=== PATIENT | female | born 1990 | race Caucasian/White ===

== ENCOUNTER 2017-08-26 17:56 | Emergency (ER) | payer OTHER ==
[~2017-08-26] VITALS: Ht 165.1 cm; Wt 59.0 kg
[~2017-08-26 17:56] MED LIST: AMOXICILLIN500 MG PO; Motrin,Rufen800 MG PO; TYLENOL W/CODEI1 TA2 PO
[2017-08-26] MEDS ORDERED: CLINDAMYCIN HC300 MG PO (18:44)
[2017-08-26] MEDS ORDERED: ANAPROX DS550 MG PO (18:44)
[2017-08-26] MEDS ORDERED: NORCO 5-325 TA1 EACH PO (18:44)
== END 2017-08-26 18:53 | disposition home or self-care (01) ==
LOC: ED 17:56
DX: K04.7 Periapical abscess without sinus (principal); F17.200 Nicotine dependence, unspecified, uncomplicated

== ENCOUNTER 2017-11-11 10:14 | Emergency (ER) | payer OTHER ==
[~2017-11-11] VITALS: Ht 165.1 cm; Wt 56.7 kg
[~2017-11-11 10:14] MED LIST changes: +ANAPROX DS550 MG PO; +CLINDAMYCIN HC300 MG PO; +NORCO 5-325 TA1 EACH PO
[2017-11-11] MEDS ORDERED: PENICILLIN-VK500 MG PO (11:20)
== END 2017-11-11 11:23 | disposition home or self-care (01) ==
LOC: ED 10:14
DX: K04.7 Periapical abscess without sinus (principal); F17.200 Nicotine dependence, unspecified, uncomplicated; Z79.899 Other long term (current) drug therapy

== ENCOUNTER 2018-01-18 13:49 | Emergency (ER) | payer OTHER ==
[~2018-01-18] VITALS: Ht 165.1 cm; Wt 59.0 kg
[~2018-01-18 13:49] MED LIST changes: +PENICILLIN-VK500 MG PO
[2018-01-18] MEDS ORDERED: SUBOXONE 12 MG1 EACH SL (14:04)
[2018-01-18 14:27] LABS: BASO % 0.2 % (0.0-1.0); EOS % 0.3 % (1.0-4.0); HEMATOCRIT 42.2 % (37.0-47.0); HEMOGLOBIN 14.5 g/dl (12.0-16.0); LYMPH # 2.1 10*3/uL (1.3-4.4); LYMPH % 23.7 % (27.0-41.0); MEAN CELL VOLUME 89.8 fl (81.0-99.0); MEAN CORPUSCULAR HGB 30.9 pg (27.0-31.0); MEAN CORPUSCULAR HGB CONC 34.4 g/dl (33.0-37.0); MEAN PLATELET VOLUME 12.4 fl (9.6-12.3); MONO # 0.3 10*3/uL (0.1-1.0); MONO % 3.3 % (3.0-9.0); NEUT # 6.3 10*3/uL (2.3-7.9); PLATELET COUNT AUTOMATED 264 10*3/uL (130-400); RED CELL DISTRI WIDTH 12.1 % (0-14.5); WHITE BLOOD COUNT 8.8 10*3/uL (4.8-10.8)
[2018-01-18 14:29] LABS: BILIRUBIN NEGATIVE (NEGATIVE); BLOOD NEGATIVE (NEGATIVE); CLARITY CLOUDY (CLEAR); COLOR YELLOW (YELLOW); GLUCOSE NEGATIVE (NEGATIVE); KETONE TRACE (NEGATIVE); LEUKO ESTERASE NEGATIVE (NEGATIVE); NITRITE NEGATIVE (NEGATIVE); PH 8.5 (5.0-9.0); SPECIFIC GRAVITY 1.015 (1.005-1.030)
[2018-01-18 14:41] LABS: BACTERIA 2+; RBC 0-2 rbc/hpf (0-2)
[2018-01-18 15:04] LABS: ALKALINE PHOSPHATASE 49 U/L (45-117); BUN 11 mg/dl (7-24); CHLORIDE 109 mmol/L (98-107); CREATININE 0.61 mg/dL (0.55-1.02); LIPASE 66 U/L (73-393); POTASSIUM 3.8 mmol/L (3.5-5.1); SGOT/AST 24 IU/L (3-35); SGPT/ALT 84 U/L (12-78); SODIUM 138 mmol/L (136-145); TOTAL PROTEIN 7.1 gm/dL (6.4-8.2)
[2018-01-18] MEDS ORDERED: DICLEGIS DR 101 EACH PO (15:40)
== END 2018-01-18 15:44 | disposition home or self-care (01) ==
LOC: ED 13:49
PROVIDERS: Physician Assistant
DX: O21.9 Vomiting of pregnancy, unspecified (principal); Z98.890 Other specified postprocedural states; Z79.899 Other long term (current) drug therapy; Z3A.10 10 weeks gestation of pregnancy

== ENCOUNTER 2018-03-25 10:13 | Emergency (ER) | payer OTHER ==
[~2018-03-25] VITALS: Ht 165.1 cm
[~2018-03-25 10:13] MED LIST changes: +DICLEGIS DR 101 EACH PO; +SUBOXONE 12 MG1 EACH SL
[2018-03-25] MEDS ORDERED: CLINDAMYCIN HC300 MG PO (10:49)
== END 2018-03-25 10:53 | disposition home or self-care (01) ==
LOC: ED 10:13
DX: O99.612 Diseases of the digestive system complicating pregnancy, second trimester (principal); K04.7 Periapical abscess without sinus; Z3A.19 19 weeks gestation of pregnancy; Z79.899 Other long term (current) drug therapy

== ENCOUNTER 2018-07-26 15:33 | Emergency (ER) | payer OTHER ==
[~2018-07-26] VITALS: Ht 165.1 cm; Wt 84.4 kg
[2018-07-26 16:22] LABS: BASO % 0.2 % (0.0-1.0); EOS % 0.3 % (1.0-4.0); HEMATOCRIT 36.3 % (37.0-47.0); HEMOGLOBIN 12.2 g/dl (12.0-16.0); LYMPH # 1.6 10*3/uL (1.3-4.4); LYMPH % 15.3 % (27.0-41.0); MEAN CELL VOLUME 90.1 fl (81.0-99.0); MEAN CORPUSCULAR HGB 30.3 pg (27.0-31.0); MEAN CORPUSCULAR HGB CONC 33.6 g/dl (33.0-37.0); MEAN PLATELET VOLUME 11.1 fl (9.6-12.3); MONO # 0.4 10*3/uL (0.1-1.0); MONO % 4.2 % (3.0-9.0); NEUT # 8.3 10*3/uL (2.3-7.9); NEUT % 79.3 % (47.0-73.0); PLATELET COUNT AUTOMATED 162 10*3/uL (130-400); RED BLOOD COUNT 4.03 10*6/uL (4.10-5.10); RED CELL DISTRI WIDTH 12.7 % (0-14.5); WHITE BLOOD COUNT 10.5 10*3/uL (4.8-10.8)
[2018-07-26 16:37] LABS: ALBUMIN 2.6 gm/dl (3.1-4.5); ALKALINE PHOSPHATASE 92 U/L (45-117); BUN 7 mg/dl (7-24); CHLORIDE 107 mmol/L (98-107); CREATININE 0.63 mg/dL (0.55-1.02); POTASSIUM 3.7 mmol/L (3.5-5.1); SGOT/AST 17 IU/L (3-35); SGPT/ALT 20 U/L (12-78); SODIUM 138 mmol/L (136-145); TOTAL PROTEIN 6.1 gm/dL (6.4-8.2)
== END 2018-07-26 17:23 | disposition home or self-care (01) ==
LOC: ED 15:33
PROVIDERS: Internal Medicine Nephrology
DX: O12.03 Gestational edema, third trimester (principal); O99.333 Smoking (tobacco) complicating pregnancy, third trimester; Z3A.37 37 weeks gestation of pregnancy; Z79.899 Other long term (current) drug therapy

== ENCOUNTER 2018-08-23 10:48 | Emergency (ER) | payer OTHER ==
[~2018-08-23] VITALS: Ht 165.1 cm; Wt 59.0 kg
== END 2018-08-23 11:12 | disposition home or self-care (01) ==
LOC: ED 10:48
DX: O90.2 Hematoma of obstetric wound (principal); R03.0 Elevated blood-pressure reading, without diagnosis of hypertension; Z48.01 Encounter for change or removal of surgical wound dressing; Z79.899 Other long term (current) drug therapy

== ENCOUNTER 2018-12-14 20:18 | Emergency (ER) | payer OTHER ==
[~2018-12-14] VITALS: Ht 165.1 cm; Wt 59.0 kg
[2018-12-14] MEDS ORDERED: CLINDAMYCIN HC300 MG PO (20:42)
[2018-12-14] MEDS ORDERED: ANAPROX DS550 MG PO (20:42)
== END 2018-12-14 20:54 | disposition home or self-care (01) ==
LOC: ED 20:18
DX: K04.7 Periapical abscess without sinus (principal); Z79.899 Other long term (current) drug therapy

== ENCOUNTER 2019-09-22 22:47 | Emergency (ER) | payer SELFPAY ==
[~2019-09-22] VITALS: Ht 165.1 cm; Wt 66.7 kg
[2019-09-23 01:38] LABS: BASO % 0.3 % (0.0-1.0); EOS # 0.1 10*3/uL (0.0-0.4); EOS % 1.2 % (1.0-4.0); HEMATOCRIT 38.9 % (37.0-47.0); HEMOGLOBIN 12.7 g/dl (12.0-16.0); LYMPH # 1.9 10*3/uL (1.3-4.4); LYMPH % 28.9 % (27.0-41.0); MEAN CELL VOLUME 93.7 fl (81.0-99.0); MEAN CORPUSCULAR HGB 30.6 pg (27.0-31.0); MEAN CORPUSCULAR HGB CONC 32.6 g/dl (33.0-37.0); MEAN PLATELET VOLUME 10.6 fl (9.6-12.3); MONO # 0.4 10*3/uL (0.1-1.0); MONO % 5.6 % (3.0-9.0); NEUT # 4.1 10*3/uL (2.3-7.9); NEUT % 63.7 % (47.0-73.0); PLATELET COUNT AUTOMATED 175 10*3/uL (130-400); RED BLOOD COUNT 4.15 10*6/uL (4.10-5.10); RED CELL DISTRI WIDTH 12.7 % (0-14.5); WHITE BLOOD COUNT 6.4 10*3/uL (4.8-10.8)
[2019-09-23 01:53] LABS: ALBUMIN 3.6 gm/dl (3.1-4.5); ALKALINE PHOSPHATASE 38 U/L (45-117); BUN 10 mg/dl (7-24); CHLORIDE 109 mmol/L (98-107); CREATININE 0.72 mg/dL (0.55-1.02); POTASSIUM 3.8 mmol/L (3.5-5.1); SGOT/AST 11 IU/L (3-35); SGPT/ALT 15 U/L (12-78); SODIUM 141 mmol/L (136-145); TOTAL PROTEIN 6.3 gm/dL (6.4-8.2)
[2019-09-23 01:54] LABS: ACETAMINOPHEN (TYLENOL) < 5.0 ug/ml (10-30); ETHYL ALCOHOL < 3.0 mg/dl (<3)
== END 2019-09-23 08:50 | disposition home or self-care (01) ==
LOC: ED 22:47
PROVIDERS: Emergency Medicine
DX: T40.4X1A Poisoning by other synthetic narcotics, accidental (unintentional), initial encounter (principal); R04.0 Epistaxis; Z79.899 Other long term (current) drug therapy; Z79.2 Long term (current) use of antibiotics; Y92.89 Other specified places as the place of occurrence of the external cause

== ENCOUNTER 2020-01-04 11:15 | Inpatient (IN) | payer MEDICAID ==
[~2020-01-04] VITALS: Ht 165.1 cm; Wt 55.4 kg
[2020-01-04 12:45] VITALS: BP 96/51
[2020-01-04 13:25] LABS: BASO % 0.4 % (0.0-1.0); EOS # 0.1 10*3/uL (0.0-0.4); EOS % 2.1 % (1.0-4.0); HEMATOCRIT 39.1 % (37.0-47.0); LYMPH # 1.6 10*3/uL (1.3-4.4); LYMPH % 30.1 % (27.0-41.0); MEAN CELL VOLUME 89.5 fl (81.0-99.0); MEAN CORPUSCULAR HGB 29.1 pg (27.0-31.0); MEAN CORPUSCULAR HGB CONC 32.5 g/dl (33.0-37.0); MEAN PLATELET VOLUME 10.8 fl (9.6-12.3); MONO # 0.3 10*3/uL (0.1-1.0); MONO % 6.5 % (3.0-9.0); NEUT # 3.2 10*3/uL (2.3-7.9); NEUT % 60.7 % (47.0-73.0); PLATELET COUNT AUTOMATED 156 10*3/uL (130-400); RED BLOOD COUNT 4.37 10*6/uL (4.10-5.10); RED CELL DISTRI WIDTH 12.6 % (0-14.5); WHITE BLOOD COUNT 5.3 10*3/uL (4.8-10.8)
[2020-01-04 13:42] LABS: ALBUMIN 3.2 gm/dl (3.1-4.5); ALKALINE PHOSPHATASE 42 U/L (45-117); BUN 11 mg/dl (7-24); CHLORIDE 109 mmol/L (98-107); CREATININE 0.77 mg/dL (0.55-1.02); POTASSIUM 4.2 mmol/L (3.5-5.1); SGOT/AST 10 IU/L (3-35); SGPT/ALT 16 U/L (12-78); SODIUM 140 mmol/L (136-145); TOTAL PROTEIN 6.2 gm/dL (6.4-8.2)
[2020-01-04 13:47] LABS: ETHYL ALCOHOL < 3.0 mg/dl (<3)
[2020-01-04 13:57] LABS: BILIRUBIN NEGATIVE (NEGATIVE); BLOOD NEGATIVE (NEGATIVE); CLARITY CLEAR (CLEAR); COLOR YELLOW (YELLOW); GLUCOSE NEGATIVE (NEGATIVE); KETONE NEGATIVE (NEGATIVE); LEUKO ESTERASE NEGATIVE (NEGATIVE); NITRITE NEGATIVE (NEGATIVE); RBC 0-2 rbc/hpf (0-2); SPECIFIC GRAVITY 1.005 (1.005-1.030); UROBILINOGEN 0.2 E.U./dl (0.2-1.0); WBC 0-2 wbc/hpf (0-5)
[2020-01-04 14:01] LABS: URINE AMPHETAMINES < 1000 (1000ng/ml); URINE BARBITURATES < 200 (200ng/ml); URINE BENZODIAZEPINES < 200 (200ng/ml); URINE CANNABINOIDS (THC) > 50 (50ng/ml); URINE COCAINE > 300 (300ng/ml); URINE METHADONE < 300 (300ng/ml); URINE OPIATES < 300 (300ng/ml)
[2020-01-04 14:02] LABS: URINE PHENCYCLIDINE < 25 (25ng/ml)
[2020-01-04 16:00] VITALS: BP 109/45
[2020-01-04 20:00] VITALS: BP 116/63
[2020-01-05] VITALS: BP 110/71
[2020-01-05 08:00] VITALS: BP 154/92
[2020-01-05 12:00] VITALS: BP 150/82
[2020-01-05 16:00] VITALS: BP 147/71
[2020-01-05 20:00] VITALS: BP 142/75
[2020-01-06] VITALS: BP 145/89
== END 2020-01-06 05:46 | disposition left against medical advice (07) | DRG 894 ==
LOC: EDHOLD 11:15 → 5E 11:15 → 4E 11:15 → 5E 11:23 → 4E 12:22
PROVIDERS: Registered Nurse; ADMIT Internal Medicine
DX: F11.23 Opioid dependence with withdrawal (principal); E44.0 Moderate protein-calorie malnutrition; B19.20 Unspecified viral hepatitis C without hepatic coma; E87.8 Other disorders of electrolyte and fluid balance, not elsewhere classified; Z53.29 Procedure and treatment not carried out because of patient's decision for other reasons; Z79.899 Other long term (current) drug therapy; Z68.20 Body mass index [BMI] 20.0-20.9, adult; Z72.0 Tobacco use; Z71.6 Tobacco abuse counseling

== ENCOUNTER 2022-07-08 10:50 | Emergency (ER) | payer MEDICAID ==
[~2022-07-08] VITALS: Ht 152.4 cm; Wt 59.0 kg
== END 2022-07-08 12:33 | disposition left against medical advice (07) ==
LOC: ED 10:50
DX: F19.939 Other psychoactive substance use, unspecified with withdrawal, unspecified (principal); Z53.21 Procedure and treatment not carried out due to patient leaving prior to being seen by health care provider

== ENCOUNTER 2022-07-09 08:12 | Inpatient (IN) | payer MEDICAID ==
[~2022-07-09] VITALS: Ht 165.1 cm; Wt 59.0 kg
[2022-07-09 08:43] VITALS: BP 131/64
[2022-07-09 09:15] LABS: BASO % 0.1 % (0.0-1.0); HEMATOCRIT 43.6 % (37.0-47.0); LYMPH # 1.2 10*3/uL (1.3-4.4); LYMPH % 10.8 % (27.0-41.0); MEAN CELL VOLUME 88.6 fl (81.0-99.0); MEAN CORPUSCULAR HGB 30.3 pg (27.0-31.0); MEAN CORPUSCULAR HGB CONC 34.2 g/dl (33.0-37.0); MEAN PLATELET VOLUME 10.5 fl (9.6-12.3); MONO # 0.5 10*3/uL (0.1-1.0); NEUT # 9.7 10*3/uL (2.3-7.9); NEUT % 84.7 % (47.0-73.0); PLATELET COUNT AUTOMATED 255 10*3/uL (130-400); RED BLOOD COUNT 4.92 10*6/uL (4.10-5.10); RED CELL DISTRI WIDTH 12.7 % (0-14.5); WHITE BLOOD COUNT 11.4 10*3/uL (4.8-10.8)
[2022-07-09 09:34] LABS: ALKALINE PHOSPHATASE 48 U/L (45-117); BUN 23 mg/dl (7-24); CHLORIDE 109 mmol/L (98-107); CREATININE 0.89 mg/dL (0.55-1.02); POTASSIUM 3.3 mmol/L (3.5-5.1); SGOT/AST 3 IU/L (3-35); SGPT/ALT 12 U/L (12-78); SODIUM 138 mmol/L (136-145); TOTAL PROTEIN 7.5 gm/dL (6.4-8.2)
[2022-07-09 09:37] LABS: B-hCG (QUALITATIVE) NEGATIVE (NEGATIVE)
[2022-07-09 09:38] LABS: ETHYL ALCOHOL < 3.0 mg/dl (<3)
[2022-07-09 09:48] LABS: BILIRUBIN Negative (Negative); BLOOD 2+ (Negative); CLARITY Cloudy (Clear); COLOR Yellow (Yellow); GLUCOSE Negative (Negative); KETONE 2+ (Negative); LEUKO ESTERASE Trace (Negative); NITRITE Positive (Negative); PH 6.5 (4.5-8.0); SPECIFIC GRAVITY >= 1.030 (1.001-1.030)
[2022-07-09 09:55] LABS: ACT PARTIAL THROMBO TIME 25.9 SECONDS (20.0-32.1); INTERNATIONAL NORM RATIO 1.1 (2.0-3.5)
[2022-07-09 10:08] LABS: URINE AMPHETAMINES < 1000 (1000ng/ml); URINE BARBITURATES < 200 (200ng/ml)
[2022-07-09 10:09] LABS: BACTERIA 2+
[2022-07-09 10:13] LABS: URINE BENZODIAZEPINES < 200 (200ng/ml); URINE CANNABINOIDS (THC) > 50 (50ng/ml); URINE COCAINE > 300 (300ng/ml); URINE METHADONE < 300 (300ng/ml); URINE OPIATES < 300 (300ng/ml)
[2022-07-09 10:15] LABS: URINE PHENCYCLIDINE < 25 (25ng/ml)
[2022-07-09 12:00] VITALS: BP 104/52
[2022-07-09 15:09] VITALS: BP 117/56
[2022-07-09 19:56] VITALS: BP 121/68
[2022-07-09 23:09] VITALS: BP 104/52
[2022-07-10 04:00] VITALS: BP 107/52
[2022-07-10 08:00] VITALS: BP 110/62
[2022-07-10 12:00] VITALS: BP 138/54
== END 2022-07-10 17:37 | disposition left against medical advice (07) | DRG 770 ==
LOC: ED 08:12 → EDHOLD 10:26 → 4E 22:03
PROVIDERS: Emergency Medicine; ADMIT Internal Medicine; ATTEND Internal Medicine
DX: F10.939 Alcohol use, unspecified with withdrawal, unspecified (principal); F11.90 Opioid use, unspecified, uncomplicated; N30.01 Acute cystitis with hematuria; F14.90 Cocaine use, unspecified, uncomplicated; F17.210 Nicotine dependence, cigarettes, uncomplicated; F12.90 Cannabis use, unspecified, uncomplicated; Z53.29 Procedure and treatment not carried out because of patient's decision for other reasons; E87.6 Hypokalemia; E80.6 Other disorders of bilirubin metabolism; Z86.19 Personal history of other infectious and parasitic diseases; Z98.891 History of uterine scar from previous surgery; Z71.6 Tobacco abuse counseling

== ENCOUNTER 2023-08-26 08:24 | Emergency (ER) | payer MEDICAID ==
[~2023-08-26] VITALS: Ht 165.1 cm; Wt 77.1 kg
[2023-08-26] MEDS ORDERED: HYDROXYZINE PAM25 M1 PO (08:36)
[2023-08-26] MEDS ORDERED: MIRTAZAPINE15 M2 PO (08:36)
[2023-08-26] MEDS ORDERED: OXCARBAZEPINE300 M1 PO (08:37)
[2023-08-26] MEDS ORDERED: QUETIAPINE FUMA50 M1 PO (08:37)
[2023-08-26] MEDS ORDERED: BUPRENORPHINE HY8 MG SL (08:38)
[2023-08-26] MEDS ORDERED: CLEOCIN HCL150 MG PO (09:55)
== END 2023-08-26 10:20 | disposition home or self-care (01) ==
LOC: ED 08:24
DX: K08.89 Other specified disorders of teeth and supporting structures (principal); Z90.89 Acquired absence of other organs; Z98.890 Other specified postprocedural states; F17.210 Nicotine dependence, cigarettes, uncomplicated

== ENCOUNTER → 2025-07-17 | Outpatient (CLI) | payer OTHER ==
[~2025-07-17] MED LIST changes: +BUPRENORPHINE HY8 MG SL; +CLEOCIN HCL150 MG PO; +HYDROXYZINE PAM25 M1 PO; +MIRTAZAPINE15 M2 PO; +OXCARBAZEPINE300 M1 PO; +QUETIAPINE FUMA50 M1 PO
[2025-07-17 17:48] LABS: BASO # 0.0 10*3/uL (0.0-0.1); BASO % 0.6 % (0.0-1.0); EOS # 0.1 10*3/uL (0.0-0.4); EOS % 1.5 % (1.0-4.0); MEAN CELL VOLUME 90.7 fl (81.0-99.0); MEAN CORPUSCULAR HGB 29.1 pg (27.0-31.0); MEAN PLATELET VOLUME 10.3 fl (9.6-12.3); MONO # 0.2 10*3/uL (0.1-1.0); MONO % 4.2 % (3.0-9.0); NEUT # 2.9 10*3/uL (2.3-7.9); NEUT % 54.5 % (47.0-73.0); NUCLEATED RED BLOOD CELL 0.0 % (0.0-0.0); NUCLEATED RED BLOOD CELL 0.0 10*3/uL (0.0-0.0); PLATELET COUNT AUTOMATED 209 10*3/uL (130-400); RED CELL DISTRI WIDTH 12.3 % (0-14.5)
[2025-07-17 18:01] LABS: BUN 15 mg/dl (9-23); LDL CHOLESTEROL 145 mg/dL (9-159); SGPT/ALT 8 U/L (5-49); VITAMIN D, 25-HYDROXY 12.3 ng/mL (30-100)
== END | disposition home or self-care (01) ==
LOC: RHCWE 12:55 → ZRHCWE 12:55
PROVIDERS: ATTEND Nurse Practitioner Family
DX: Z13.220 Encounter for screening for lipoid disorders (principal); R30.0 Dysuria; R61 Generalized hyperhidrosis; Z76.89 Persons encountering health services in other specified circumstances; R53.82 Chronic fatigue, unspecified